=== PATIENT | female | born 1990 | race Caucasian/White ===

== ENCOUNTER → 2019-01-10 | Outpatient (CLI) | payer OTHER ==
[~2019-01-10] MED LIST: FOLI1 PO; IBUP800 PO; PREN-16 PO; [UNRECOGNIZED DRUG - OTHER] TOP
[2019-01-12 15:07] LABS: HPV 16 Negative (Negative); HPV 18 Negative (Negative); HPV OTHER HR TYPES Negative (Negative)
== END | disposition home or self-care (01) ==
LOC: LAB SHORT 12:26 → LAB 12:26
PROVIDERS: Nurse Practitioner Women's Health
DX: Z12.4 Encounter for screening for malignant neoplasm of cervix (principal)
CPT/HCPCS: 87624; G0123

== ENCOUNTER 2024-06-01 07:38 | Day surgery (SDC) | payer OTHER ==
[~2024-06-01] VITALS: Ht 170.2 cm; Wt 79.3 kg
[~2024-06-01 07:38] MED LIST changes: +Lactated Ringer's 1,000 ML IV ONE
[2024-06-01] MEDS ORDERED: IBUP200 PO (08:09)
[2024-06-01] MEDS ORDERED: Lactated Ringer's 1,000 ML IV ONE (08:13)
[2024-06-01] MEDS ORDERED: propofoL 20 ML IV ONE ×2 (08:38→09:20)
[2024-06-01] MEDS ORDERED: FentaNYL Citrate 50 MCG/ML 2 ML Injection ONE (08:39)
[2024-06-01] MEDS ORDERED: Ondansetron HCl 2 MG / ML 2ML Vial ONE ×2 (08:51→10:11)
[2024-06-01] MEDS ORDERED: Dexamethasone Sod Phos 10 MG/ML 1ML VIAL ONE (08:51)
[2024-06-01] MEDS ORDERED: CeFAZolin Sodium 2,000 MG VIAL ONE (09:00)
[2024-06-01] MEDS ORDERED: Ketorolac Tromethamine 30mg Vial ONE ×2 (09:35→09:36)
--- NOTE | 2024-06-01 09:51 | NUR ---
06/01/24 0951 Myranda Suárez 100ML OF CLEAR YELLOW URINE OUTPUT. 45ML FLUID DEFICIT.
[2024-06-01] MEDS ORDERED: Scopolamine Hydrobromide Patch ONE (10:12)
[2024-06-01 10:22] VITALS: BP 131/85
--- NOTE | 2024-06-01 10:50 | NUR ---
06/01/24 1050 Soha Lopez D/Evan INSTRUCTIONS GIVEN TO PT & PT'S , UNDERSTANDING VERBALIZED. PT STATES LOWER ABDOMINAL CRAMPING IS TOLERABLE & STATES NAUSEA HAS SUBSIDED WELL. VSS, ON RA. PT STATES READINESS TO GO HOME. PT HAS ALL BELONGINGS W/ HER. PT WHEELED TO PRIVATE VEHICLE, STEADY GAIT NOTED UPON TRANSFER FROM TO VEHICLE. NO VISIBLE SIGNS OF DISTRESS NOTED.
== END 2024-06-01 10:45 | disposition home or self-care (01) ==
LOC: ORSCSDS 07:38
PROVIDERS: Obstetrics & Gynecology
PROC: 0U5B8ZZ Destruction of Endometrium, Via Natural or Artificial Opening Endoscopic (ICD-10-PCS; principal; 2024-06-01 09:00)
DX: N92.1 Excessive and frequent menstruation with irregular cycle (principal); N94.6 Dysmenorrhea, unspecified
CPT/HCPCS: 88305; A9270; J0690; J1100; J1885; J2405; J2704; J3010; J7120